=== PATIENT | female | born 2000 | race Caucasian/White ===

== ENCOUNTER 2020-07-09 13:54 | Outpatient (CLI) | payer BC, SELFPAY ==
--- NOTE | 2020-07-09 14:02 | US_ITS ---
WS: [id number] ULTRASOUND PELVIS TECHNIQUE: Transabdominal. CLINICAL INFORMATION: HX OF OVARIAN CYST/IRREGULAR MENSES/LLQ ABD PAIN LMP: July 02, 2020 : No. COMPARISON: None. FINDINGS: Uterus Orientation: Anteverted. Size: 7.1 cm x 4.1 cm x 2.6 cm Masses: None. Cervix: Normal Endometrium: Normal. Endometrium thickness: 0.9 cm. Adnexa: Normal. Right ovary size: 3.1 cm x 1.7 cm x 1.4 cm. Right ovary volume: 3.9 ccm3 Left ovary size: 3.5 cm x 3.0 cm x 1.8 cm. Left ovary volume: 10.0 ccm3 Free fluid: None. Other findings: None. US/US pelvic complete* [id number] IMPRESSION: 1. Normal uterus and endometrium measuring 8.7 mm. 2. Multifollicular ovaries bilaterally. 3. Normal adnexa 4. No free fluid in the cul-de-sac.
== END 2020-07-09 13:55 | disposition home or self-care (01) ==
LOC: US 13:56
PROVIDERS: PCP Electrodiagnostic Medicine; Visit Provider Electrodiagnostic Medicine
DX: Z87.42 Personal history of other diseases of the female genital tract (principal); R10.32 Left lower quadrant pain; N92.6 Irregular menstruation, unspecified
CPT/HCPCS: 76856

== ENCOUNTER → 2022-02-21 13:54 | Outpatient (BNVA) | payer BC, SELFPAY | PROVIDERS: PCP Electrodiagnostic Medicine; Visit Provider Psychiatry & Neurology Psychiatry | DX: F31.9 Bipolar disorder, unspecified (principal); F60.3 Borderline personality disorder; Z79.899 Other long term (current) drug therapy; F50.81 Binge eating disorder; F41.1 Generalized anxiety disorder; F33.2 Major depressive disorder, recurrent severe without psychotic features | CPT/HCPCS: 80053; 80178; 84443 ==

== ENCOUNTER → 2025-02-20 13:22 | Outpatient (BNVA) | payer BC, SELFPAY | PROVIDERS: PCP Electrodiagnostic Medicine; Visit Provider Emergency Medicine | DX: J06.9 Acute upper respiratory infection, unspecified (principal); J02.9 Acute pharyngitis, unspecified | CPT/HCPCS: 87071; 87400; 87426; 87880 ==